=== PATIENT | male | born 1950 | race Caucasian/White ===

== ENCOUNTER 2019-11-10 12:21 | Emergency (ER) | payer BC, MEDICARE ==
[2008-01-04 06:37] VITALS: BP 130/87
[~2019-11-10] VITALS: Ht 180.3 cm; Wt 125.0 kg
[~2019-11-10 12:21] MED LIST: ASPIRIN 81M81 MG/TA2 PO; COREG CR40 MG PO; COZAAR100 MG PO; HCTZ 25MG TAB25 MG PO; MULTIPLE VITAMI1 CAP PO; NIASPAN1000 MG PO; PREDNISONE20 MG PO; PROSCAR 5MG5 MG PO; SAW PALMETTO E160 M1 PO; VALTREX1 GM PO; VITAMIN C500 MG PO; WELCHOL 625MG625 MG PO; ZESTRIL40 MG PO; ZOCOR 40MG40 MG PO; ZYLOPRIM 300MG300 MG PO
[2019-11-10 12:26] VITALS: TEMP 96.3
[2019-11-10 13:11] LABS: BASO % 0.2 % (0.0-2.0); EOS % 0.2 % (0-4.0); GRAN # 9.7 (1.4-6.5); GRAN % 80.7 % (42.2-75.2); HEMATOCRIT 41.8 % (42.0-52.0); HEMOGLOBIN 14.6 g/dl (13.5-18.0); LYMPH # 1.8 (1.2-3.4); MEAN CELL VOLUME 90 fl (80.0-100.0); MEAN CORPUSCULAR HEMOGLOBIN 31 pg (27.0-31.0); MEAN CORPUSCULAR HGB CONC 35 g/dl (33.0-37.0); MONO # 0.4 (0.1-0.6); MONO % 3.7 % (1.7-9.3); PLATELET COUNT 196 K/mm3 (130-400); RED BLOOD COUNT 4.65 M/mm3 (4.20-5.60); REDCELL DISTRIBUTION WIDTH-CV 12.5 % (11.5-14.5)
[2019-11-10 13:21] LABS: ALBUMIN 4.3 gm/dL (3.5-5.0); BILIRUBIN,TOTAL 1.1 mg/dL (0.0-1.0); CALCIUM 9.7 mg/dL (8.4-10.2); POTASSIUM 3.9 mmol/L (3.4-5.0); TOTAL PROTEIN 7.4 gm/dL (6.4-8.2)
[2019-11-10] MEDS ORDERED: NORCO 325 MG-51 TAB PO (14:31)
[2019-11-10] MEDS ORDERED: FLOMAX 0.40.4 MG/CAP PO (14:31)
[2019-11-10] MEDS ORDERED: ZOFRAN ODT4 MG PO (14:35)
[2019-11-10 15:40] VITALS: BP 121/63; PULSE 80
== END 2019-11-10 15:46 | disposition home or self-care (01) ==
LOC: COL.ER 12:21
PROVIDERS: Emergency Medicine
DX: N13.2 Hydronephrosis with renal and ureteral calculous obstruction (principal); N23 Unspecified renal colic; I10 Essential (primary) hypertension; Z79.82 Long term (current) use of aspirin; Z88.8 Allergy status to other drugs, medicaments and biological substances
CPT/HCPCS: J1170; J1885; J2405; J7030; Q9967

== ENCOUNTER 2022-08-15 07:45 | Inpatient (IN) | payer MEDICARE, OTHER ==
[2022-08-15] VITALS (15 sets, daily range): BP systolic 105–139; BP diastolic 50–82; PULSE 75–99; TEMP 97.8–99.3
[~2022-08-15] VITALS: Ht 180.3 cm; Wt 125.0 kg
[~2022-08-15 07:45] MED LIST changes: -COREG CR40 MG PO; +COREG CR80 MG PO; +FLOMAX 0.40.4 MG/CAP PO; +NORCO 325 MG-51 TAB PO; -VITAMIN C500 MG PO; +VITAMINC1000TA PO; +ZOFRAN ODT4 MG PO
[2022-08-15 08:09] LABS: BASO # 0.1 K/mm3 (0.0-0.2); BASO % 0.7 % (0.0-2.0); EOS # 0.1 K/mm3 (0.0-0.7); EOS % 0.8 % (0.0-4.0); GRAN # 5.5 K/mm3 (1.4-6.5); GRAN % 60.3 % (42.2-75.2); LYMPH # 2.7 K/mm3 (1.2-3.4); LYMPH % 29.6 % (20.0-51.0); MEAN CELL VOLUME 98 fl (80.0-100.0); MEAN CORPUSCULAR HGB CONC 33 g/dl (33.0-37.0); MEAN PLATELET VOLUME 9.4 fl (7.4-10.4); MONO # 0.7 K/mm3 (0.1-0.6); MONO % 7.9 % (1.7-9.3); PLATELET COUNT 261 K/mm3 (130-400); RED BLOOD COUNT 3.09 M/mm3 (4.20-5.60); REDCELL DISTRIBUTION WIDTH-CV 13.8 % (11.5-14.5)
[2022-08-15 08:20] LABS: HEMATOCRIT 30.2 % (42.0-52.0); HEMOGLOBIN 9.8 g/dl (13.5-18.0); MEAN CORPUSCULAR HEMOGLOBIN 32 pg (27-31)
[2022-08-15 08:40] LABS: ALANINE AMINOTRANSFERASE 13 U/L (0-55); ALBUMIN 3.5 gm/dL (3.4-4.8); ALKALINE PHOSPHATASE 103 U/L (40-150); ANION GAP 9 mmol/L (7-16); AST,SGOT 20 U/L (5-34); BILIRUBIN,TOTAL 0.4 mg/dL (0.2-1.2); BLOOD UREA NITROGEN 52 mg/dL (8-26); CALCIUM 9.4 mg/dL (8.4-10.2); CARBON DIOXIDE 20 mmol/L (23-31); CHLORIDE 112 mmol/L (98-107); CREATININE, serum 0.91 mg/dL (0.72-1.25); GLUCOSE 111 mg/dL (70-99); POTASSIUM 3.9 mmol/L (3.5-4.5); SODIUM 141 mmol/L (136-145); TOTAL PROTEIN 6.2 gm/dL (6.2-8.1)
[2022-08-15 08:47] LABS: TROPONIN-I < 0.010 ng/mL (0.00-0.033)
[2022-08-15] MEDS ORDERED: VITAMIND3 5000 PO (08:50)
[2022-08-15] MEDS ORDERED: ONE DAILY MULTI1 TA1 PO (08:51)
[2022-08-15] MEDS ORDERED: MULTI VITAMINS1 TAB PO (08:53)
[2022-08-15 13:50] LABS: HEMATOCRIT 25.9 % (42.0-52.0); HEMOGLOBIN 8.4 g/dl (13.5-18.0)
[2022-08-15 19:28] LABS: HEMATOCRIT 24.5 % (42.0-52.0)
--- NOTE | 2022-08-15 22:21 | NUR ---
Patient assessed around 1999. Alert and oriented, and able to make needs known. Denies having pain and discomfort. Peripheral IV to left AC, IV fluids running per orders. Continues on clear liquid diet at this time. Aware of plan to advance diet to soft tomorrow. Voices no questions, needs, or concerns at this time. In bed with call light within reach.
--- NOTE | 2022-08-15 23:15 | NUR ---
PT STATES HE DID NOT BRING HIS HOME CPAP AND DID NOT WANT TO WEAR THE HOSPITAL'S. INFORMED PT IF NEEDED WILL PLACE ON [place] AND IF HE STAYS FOR MORE THEN ONE NIGHT PERHAPS HE CAN HAVE SOMEONE BRING HIS IN. PT WAS AGREEABLE. RN NOTIFIED
[2022-08-16] VITALS (7 sets, daily range): BP systolic 108–130; BP diastolic 52–63; PULSE 78–87; TEMP 97.5–98.1
[2022-08-16 01:25] LABS: HEMATOCRIT 22.8 % (42.0-52.0); HEMOGLOBIN 7.6 g/dl (13.5-18.0)
--- NOTE | 2022-08-16 06:12 | NUR ---
Continues on IV fluids per orders. Has denied having pain and discomfort this shift. Voices no questions, needs, or concerns at this time. In bed with call light within reach.
[2022-08-16 06:48] LABS: BASO % 0.5 % (0.0-2.0); EOS # 0.1 K/mm3 (0.0-0.7); EOS % 1.2 % (0.0-4.0); GRAN # 3.3 K/mm3 (1.4-6.5); GRAN % 55.4 % (42.2-75.2); HEMATOCRIT 22.2 % (42.0-52.0); HEMOGLOBIN 7.3 g/dl (13.5-18.0); LYMPH # 1.9 K/mm3 (1.2-3.4); LYMPH % 31.7 % (20.0-51.0); MEAN CELL VOLUME 97 fl (80.0-100.0); MEAN CORPUSCULAR HEMOGLOBIN 32 pg (27-31); MEAN CORPUSCULAR HGB CONC 33 g/dl (33.0-37.0); MEAN PLATELET VOLUME 9.8 fl (7.4-10.4); MONO # 0.6 K/mm3 (0.1-0.6); MONO % 10.5 % (1.7-9.3); PLATELET COUNT 200 K/mm3 (130-400); RED BLOOD COUNT 2.29 M/mm3 (4.20-5.60); REDCELL DISTRIBUTION WIDTH-CV 14.1 % (11.5-14.5)
[2022-08-16 07:28] LABS: CALCIUM 8.2 mg/dL (8.4-10.2); CREATININE, serum 0.79 mg/dL (0.72-1.25); POTASSIUM 3.7 mmol/L (3.5-4.5)
--- NOTE | 2022-08-16 09:24 | NUR ---
SW met with the patient to discuss discharge plan. The patient lives in [place] with his , [place] (ph#[phone]). He reports independence with ADLs and does not have any DME. The patient's PCP is Dr. Barrera Hernandez and he obtains his medications from [facility]. The patient does not have a DPOA-HC and he was not interested in completing one at this time. The patient plans to return home with his upon discharge. The patient has [employer] listed as his insurance. SW inquired if he has Medicare. The patient states that he no longer has [employer] and that he has Medicare as primary and [facility] as secondary. He states that his provided his insurance cards to ER admissions. SW notified Financial counseling and admissions. *Discharge plan: home with *
[2022-08-16 11:26] LABS: HEMATOCRIT 22.6 % (42.0-52.0); HEMOGLOBIN 7.4 g/dl (13.5-18.0)
--- NOTE | 2022-08-16 11:31 | NUR ---
Initial visit: Hogshead Packer stopped by room on rounds. Pt was resting and content. Pt has no needs right now. Hogshead Packer will follow up as needed.
[2022-08-16] MEDS ORDERED: PROTONIX 40MG T40 MG PO (11:47)
--- NOTE | 2022-08-16 14:34 | NUR ---
ALL DISCHARGE INSTRUCTIONS REVIEWED WITH PT, ALL QUESTIONS AND CONCERNS ANSWERED AT THAT TIME. IV SITE WAS DISCONTINUED, CATHETER INTACT. PT FINISHED EATING LUNCH PRIOR TO DISCHARGE. PT ESCORTED OUT BY PCT VIA WHEELCHAIR, ALL PERSONAL BELONGINGS TAKEN WITH PT.
== END 2022-08-16 14:20 | disposition home or self-care (01) | DRG 378 ==
LOC: COL.ER 07:45 → MEDICAL 09:35
PROVIDERS: Emergency Medicine; Internal Medicine Gastroenterology; ADMIT Hospitalist
PROC: 0W3P8ZZ Control Bleeding in Gastrointestinal Tract, Via Natural or Artificial Opening Endoscopic (ICD-10-PCS; principal; 2022-08-15 16:00)
DX: K26.4 Chronic or unspecified duodenal ulcer with hemorrhage (principal); D62 Acute posthemorrhagic anemia; R55 Syncope and collapse; R42 Dizziness and giddiness; I10 Essential (primary) hypertension; I25.10 Atherosclerotic heart disease of native coronary artery without angina pectoris; E78.5 Hyperlipidemia, unspecified; G47.33 Obstructive sleep apnea (adult) (pediatric); N40.0 Benign prostatic hyperplasia without lower urinary tract symptoms; C44.92 Squamous cell carcinoma of skin, unspecified; F10.90 Alcohol use, unspecified, uncomplicated; Z88.8 Allergy status to other drugs, medicaments and biological substances; Z96.642 Presence of left artificial hip joint; Z87.891 Personal history of nicotine dependence
CPT/HCPCS: C9113; J0171; J2704; J7030

== ENCOUNTER → 2023-10-27 | Outpatient (CLI) | payer MEDICARE, OTHER ==
[~2023-10-27] MED LIST changes: +Iohexol 300 - 10 ML VIAL IV ONE; +MULTI VITAMINS1 TAB PO; +ONE DAILY MULTI1 TA1 PO; +PROTONIX 40MG T40 MG PO; +Triamcinolone 40 MG/ML 1 ML VIAL IJ ONE; +VITAMIND3 5000 PO
== END ==
LOC: COL.RAD 07:28
DX: M25.552 Pain in left hip (principal)
CPT/HCPCS: J0665; J3301; Q9967